=== PATIENT | female | born 1975 | race Caucasian/White ===

== ENCOUNTER 2020-09-15 17:53 | Inpatient (IN) | payer OTHER, SELFPAY ==
[2020-09-15] MEDS ORDERED: Morphine 4 MG/ML VIAL ONE ×2 (18:13→19:01)
[2020-09-15] MEDS ORDERED: Ondansetron PF 4 MG/2 ML Vial ONE (18:13)
[2020-09-15 18:28] LABS: #Basophils 0.1 thou/uL (0.0-0.2); #Eosinphils 0.1 thou/uL (0.0-0.7); #Lymphocytes 1.6 thou/uL (1.20-3.40); #Monocytes 0.4 thou/uL (0.11-0.59); #Neutrophils 6.7 thou/uL (1.40-6.50); %Basophils 0.9 % (0.0-1.0); %Eosinophils 0.7 % (0.0-10.0); %Lymphocytes 17.6 % (21.0-51.0); %Monocytes 4.9 % (0.0-10.0); Hemoglobin 12.2 g/dL (12.0-16.0); Mean Corpuscular HGB CONC 34.9 g/dL (32.0-36.0); Mean Corpuscular Hemoglobin 34.1 pg (27.0-31.0); Mean Corpuscular Volume 97.6 fL (78.0-98.0); Mean Platelet Volume 8.6 fL (7.4-10.4); Platelet Count 195 thou/uL (130-400); RBC Distribution Width 11.2 % (11.5-14.5); Red Blood Cell (RBC) Count 3.59 mill/uL (4.20-5.40); White Blood Cell (WBC) Count 8.8 thou/uL (4.8-10.8)
[2020-09-15 18:49] LABS: ALT (SGPT) 7 U/L (8-55); AST (SGOT) 11 U/L (5-34); Albumin 3.9 g/dL (3.5-5.0); Alkaline Phosphatase 60 U/L (40-110); Anion Gap 10 mmol/L (10-20); BUN (Urea Nitrogen) 10 mg/dL (7.0-18.7); Bilirubin, Total 1.6 mg/dL (0.2-1.2); Calc. Creatinine Clearance 0 mL/min (70-130); Calcium 8.8 mg/dL (7.8-10.44); Carbon Dioxide 27 mmol/L (22-29); Chloride 106 mmol/L (98-107); Globulin 2.8 g/dL (2.4-3.5); Glucose 106 mg/dL (70-105); Protein, Total 6.7 g/dL (6.0-8.3); Sodium 140 mmol/L (136-145)
[2020-09-15 19:03] LABS: Potassium 2.8 mmol/L (3.5-5.1)
[2020-09-15 19:11] LABS: BHCG - Serum Negative (NEGATIVE); Pregs Control Background? CLEAR/WHITE (CLR/WHITE); Pregs Control Bar Appear? YES (CONTROL BAR)
[2020-09-15] MEDS ORDERED: Ondansetron PF 4 MG/2 ML Vial IVP PRN (21:54)
[2020-09-15] MEDS ORDERED: hydrALAZINE 20 MG/ML VIAL SLOW IVP PRN (21:54)
[2020-09-15] MEDS ORDERED: Morphine 2 MG/ML VIAL SLOW IVP PRN (21:54)
[2020-09-15] MEDS ORDERED: Dextrose 50% Abboject 50 ML SYRINGE SLOW IVP PRN (21:54)
[2020-09-15] MEDS ORDERED: Ondansetron ODT 4 MG TAB PO PRN (21:54)
[2020-09-15] MEDS ORDERED: Cyclobenzaprine 10 MG TAB PO PRN (21:54)
[2020-09-15] MEDS ORDERED: traMADol HCl 50 MG TAB PO PRN (21:54)
[2020-09-15] MEDS ORDERED: Dextrose 5% in Water 1,000 ML IV PRN (21:54)
[2020-09-15] MEDS ORDERED: Ketorolac Tromethamine 30 MG/ML VIAL IVP SCH (22:00)
[2020-09-15] MEDS ORDERED: Famotidine 20 MG TAB PO SCH (22:15)
[2020-09-15] MEDS ORDERED: Potassium Chloride 40 MEQ in Sodium Chloride 0.9% 250 ML 250 ML IVPB SCH (22:30)
[2020-09-15] MEDS: Acetaminophen 325 MG TAB PO SCH (22:48)
[2020-09-15] MEDS ORDERED: Sodium Chloride 0.9% 1,000 ML IV SCH (23:55)
[2020-09-16] MEDS: traMADol HCl 50 MG TAB PO PRN ×3 (02:35→18:34)
[2020-09-16 04:38] LABS: SARS-CoV-2 PCR by NAA DETECTED (NotDetected)
[2020-09-16] MEDS: Acetaminophen 325 MG TAB PO SCH ×3 (05:59→18:33)
[2020-09-16] MEDS: Ibuprofen 600 MG TAB PO SCH ×3 (05:59→21:38)
[2020-09-16 06:12] LABS: #Eosinphils 0.2 thou/uL (0.0-0.7); #Lymphocytes 1.7 thou/uL (1.20-3.40); #Monocytes 0.5 thou/uL (0.11-0.59); #Neutrophils 5.8 thou/uL (1.40-6.50); %Basophils 0.4 % (0.0-1.0); %Eosinophils 2.1 % (0.0-10.0); %Lymphocytes 20.8 % (21.0-51.0); %Neutrophils 70.8 % (42.0-75.0); Hemoglobin 10.4 g/dL (12.0-16.0); Mean Corpuscular HGB CONC 32.8 g/dL (32.0-36.0); Mean Corpuscular Hemoglobin 32.7 pg (27.0-31.0); Mean Corpuscular Volume 99.6 fL (78.0-98.0); Mean Platelet Volume 8.5 fL (7.4-10.4); Platelet Count 156 thou/uL (130-400); RBC Distribution Width 11.3 % (11.5-14.5); Red Blood Cell (RBC) Count 3.18 mill/uL (4.20-5.40); White Blood Cell (WBC) Count 8.3 thou/uL (4.8-10.8)
[2020-09-16 06:35] LABS: Anion Gap 11 mmol/L (10-20); BUN (Urea Nitrogen) 9 mg/dL (7.0-18.7); Calc. Creatinine Clearance 0 mL/min (70-130); Calcium 7.9 mg/dL (7.8-10.44); Carbon Dioxide 23 mmol/L (22-29); Chloride 110 mmol/L (98-107); Glucose 91 mg/dL (70-105); Magnesium 1.9 mg/dL (1.6-2.6); Phosphorus 3.7 mg/dL (2.3-4.7); Potassium 3.9 mmol/L (3.5-5.1); Sodium 140 mmol/L (136-145)
[2020-09-16] MEDS: Famotidine 20 MG TAB PO SCH ×2 (09:41→21:39)
[2020-09-16] MEDS ORDERED: Fentanyl 100 MCG/2 ML VIAL ONE ×2 (12:15→15:01)
[2020-09-16] MEDS ORDERED: Midazolam HCl 2 mg/2 ml Vial ONE (13:05)
[2020-09-16] MEDS ORDERED: PHENYLEPHRINE-NS 100 MCG/ML 10 ML SYRINGE ONE (13:35)
[2020-09-16] MEDS ORDERED: Rocuronium Bromide 10 MG/ML (10ML VIAL) ONE (13:35)
[2020-09-16] MEDS ORDERED: Dexamethasone 20 MG/5 ML VIAL ONE (13:35)
[2020-09-16] MEDS ORDERED: Lidocaine 1% PF 5 ML VIAL ONE (13:35)
[2020-09-16] MEDS ORDERED: Ondansetron PF 4 MG/2 ML Vial ONE (13:35)
[2020-09-16] MEDS ORDERED: Glycopyrrolate 0.2 MG/ML 5 ML SYRINGE ONE (13:35)
[2020-09-16] MEDS ORDERED: Ketorolac Tromethamine 30 MG/ML VIAL ONE (13:35)
[2020-09-16] MEDS ORDERED: PROPOFOL 200 MG/20 ML VIAL ONE (13:35)
[2020-09-16] MEDS ORDERED: Bupivacaine PF 0.5% 30 ML VIAL ONE (14:16)
[2020-09-16] MEDS ORDERED: EPINEPHrine 1 MG/ML AMP ONE (14:16)
[2020-09-16] MEDS ORDERED: Promethazine HCl 25 MG/ML VIAL SLOW IVP PRN (15:14)
[2020-09-16] MEDS ORDERED: Morphine Sulfate 2 MG/ML SYRINGE SLOW IVP PRN (15:14)
[2020-09-16] MEDS ORDERED: Ketorolac Tromethamine 30 MG/ML VIAL IVP PRN (15:14)
[2020-09-16] MEDS ORDERED: Promethazine HCl 25 MG/ML VIAL IM PRN (15:14)
[2020-09-16] MEDS ORDERED: HYDROmorphone 2 MG/ML VIAL SLOW IVP PRN (15:14)
[2020-09-16] MEDS ORDERED: Meperidine HCl/PF 25 MG/ML VIAL SLOW IVP PRN (15:14)
[2020-09-16] MEDS ORDERED: PACU-Morphine 4MG/ML VIAL SLOW IVP PRN (15:14)
[2020-09-16] MEDS ORDERED: Ondansetron HCl/PF 4 MG/2 ML Vial IVP PRN (15:14)
[2020-09-16] MEDS ORDERED: Meperidine HCl/PF 25 MG/ML VIAL ONE (15:28)
[2020-09-17] MEDS: Acetaminophen 325 MG TAB PO SCH ×3 (00:02→12:13)
[2020-09-17] MEDS: Ibuprofen 600 MG TAB PO SCH ×2 (05:28→15:32)
[2020-09-17] MEDS: Famotidine 20 MG TAB PO SCH (08:59)
[2020-09-17] MEDS: traMADol HCl 50 MG TAB PO PRN (10:46)
[2020-09-17 11:25] VITALS: BP 104/67; TEMP 98.4
== END 2020-09-17 15:15 | disposition home or self-care (01) | DRG 492 ==
LOC: ERS 17:53 → SURG B 18:55
PROVIDERS: ADMIT Surgery; ATTEND Surgery
PROC: 0QSG04Z Reposition Right Tibia with Internal Fixation Device, Open Approach (ICD-10-PCS; principal; 2020-09-16)
PROC: 0QSJXZZ Reposition Right Fibula, External Approach (ICD-10-PCS; 2020-09-16)
DX: S82.241A Displaced spiral fracture of shaft of right tibia, initial encounter for closed fracture (principal); U07.1 COVID-19; S89.201A Unspecified physeal fracture of upper end of right fibula, initial encounter for closed fracture; E87.6 Hypokalemia; V00.128A Other non-in-line roller-skating accident, initial encounter; Y93.51 Activity, roller skating (inline) and skateboarding
CPT/HCPCS: 29515; 36415; 76000; 80048; 80053; 83735; 84100; 84703; 85025; 86850; 86900; 86901; 87635; 93005; 96374; 96375; 96376; C1713; J0171; J1100; J1885; J2175; J2250; J2270; J2405; J2704; J3010; J3480; J7050; S0020; U0003; U0005